=== PATIENT | female | born 1985 | race African-American/Black ===

== ENCOUNTER 2016-12-20 10:13 | Emergency (ER) | payer SELFPAY ==
[~2016-12-20] VITALS: Ht 162.6 cm; Wt 59.0 kg
[2016-12-20] MEDS ORDERED: SODIUM CHLORIDE 0.9% 1,000 ML IV ONE (11:30)
[2016-12-20 11:58] LABS: CHLORIDE 109 mEq/L (98-107)
[2016-12-20 12:03] LABS: HCG SCREEN NEGATIVE
[2016-12-20 12:04] LABS: BASOPHILS % 0.7 % (0.0-2.0); EOSINOPHILS % 0.1 % (0.0-5.0); HEMATOCRIT. 38.8 % (36.0-48.0); HEMOGLOBIN. 12.6 g/dL (12.0-16.0); LYMPHOCYTES % 8.9 % (20.0-50.0); MEAN CORPUSCULAR HEMOGLOBIN 27.6 pg (28.0-32.0); MEAN CORPUSCULAR VOLUME 85.1 fL (81.0-99.0); MEAN PLATELET VOLUME 7.6 fl (7.4-10.4); MONOCYTES % 3.9 % (2.0-8.0); NEUTROPHILS % 86.4 % (40.0-76.0); PLATELET 359 x1000/uL (130-400); RED BLOOD CELL COUNT 4.55 mill/uL (4.2-5.4); RED CELL DISTRIBUTION WIDTH 15.1 % (11.6-14.6)
[2016-12-20 12:05] LABS: CARBON DIOXIDE 24 mEq/L (21-32)
[2016-12-20 12:10] LABS: CLARITY URINE CLEAR (CLEAR); COLOR URINE YELLOW (YELLOW); GLUCOSE URINE NEGATIVE (NEGATIVE); KETONES URINE 4+ (NEGATIVE); LEUKOCYTE ESTERASE URINE NEGATIVE (NEGATIVE); NITRITE URINE NEGATIVE (NEGATIVE); OCCULT BLOOD URINE TRACE (NEGATIVE); PROTEIN URINE TRACE (NEGATIVE); SPECIFIC GRAVITY URINE 1.028 (1.005-1.030)
[2016-12-20 14:46] VITALS: BP 151/96
== END 2016-12-20 14:55 | disposition home or self-care (01) ==
LOC: ER 10:45
DX: B34.9 Viral infection, unspecified (principal); I10 Essential (primary) hypertension; F12.10 Cannabis abuse, uncomplicated
CPT/HCPCS: 36415; 71010; 80048; 81001; 84703; 85025; 87804; 93005; 96360; 99285; J7030; Z7610

== ENCOUNTER 2019-11-25 12:03 | Emergency (ER) | payer OTHER ==
[~2019-11-25] VITALS: Ht 162.6 cm; Wt 62.0 kg
[2019-11-25 14:05] VITALS: BP 160/98
== END 2019-11-25 14:06 | disposition home or self-care (01) ==
LOC: ER 12:03
DX: Z48.00 Encounter for change or removal of nonsurgical wound dressing (principal)
CPT/HCPCS: 29130; 99283